=== PATIENT | female | born 1945 | race Caucasian/White ===

== ENCOUNTER 2022-07-30 09:09 | Outpatient (CLI) | payer MEDICARE, MEDICAID ==
[2022-07-30 09:36] LABS: BASOPHILS % (AUTO) 0.6 %; EOSINOPHILS # (AUTO) 0.1 10^3/uL (0.0-0.7); EOSINOPHILS % (AUTO) 2.7 %; HCT - HEMATOCRIT 41.3 % (37.0-47.0); HGB - HEMOGLOBIN 13.7 g/dL (12.0-16.0); LYMPHOCYTES # (AUTO) 1.3 10^3/uL (1.5-3.5); LYMPHOCYTES % (AUTO) 25.7 %; MEAN CORPUSCULAR HGB CONC 33.2 g/dL (32.0-36.0); MEAN CORPUSCULAR VOLUME 84.5 fL (81.0-99.0); MEAN PLATELET VOLUME 9.7 fL (7.9-10.8); MONOCYTES # (AUTO) 0.4 10^3/uL (0.0-1.0); MONOCYTES % (AUTO) 8.8 %; PLT - PLATELET COUNT 178 10^3/uL (130-450); RED BLOOD COUNT 4.89 10^6/uL (4.20-5.40); RED CELL DISTRIBUTION WIDTH 13.5 % (12.0-15.0); WHITE BLOOD COUNT 4.9 x10^3/uL (4.8-10.8)
[2022-07-30 11:20] LABS: ALBUMIN 4.1 g/dL (3.2-5.5); ALBUMIN/GLOBULIN RATIO 1.7 (1.0-2.2); ALKALINE PHOSPHATASE 92 IU/L (42-121); ALT ALANINE AMINOTRANSFERASE 21 IU/L (10-60); AST ASPARTATE AMINOTRANSFERASE 21 IU/L (10-42); BILIRUBIN,TOTAL 0.7 mg/dL (0.2-1.0); BUN - BLOOD UREA NITROGEN 19 mg/dL (6-20); CALCIUM 9.2 mg/dL (8.5-10.3); CARBON DIOXIDE - CO2 24 mmol/L (21-32); CHLORIDE 105 mmol/L (101-111); CHOL/HDL RATIO 2.8 (<4.4); CHOLESTEROL 197 mg/dL; CREATININE 0.7 mg/dL (0.4-1.0); GFR - MDRD 81 (>89); GLUCOSE 117 mg/dL (70-100); HDL CHOLESTEROL 71 mg/dL; LDL CHOLESTEROL,CALCULATED 112 mg/dL; LDL/HDL RATIO 1.6 (<4.4); POTASSIUM 4.1 mmol/L (3.5-5.0); SODIUM 138 mmol/L (135-145); TOTAL PROTEIN 6.5 g/dL (6.7-8.2); TRIGLYCERIDES 70 mg/dL; VLDL CHOLESTEROL 14 mg/dL
[2022-07-30 11:41] LABS: ESTIMATED AVERAGE GLUCOSE 114 mg/dL (70-100); HEMOGLOBIN A1c% 5.6 % (4.27-6.07)
== END 2022-07-30 09:10 | disposition home or self-care (01) ==
LOC: LAB 09:09
PROVIDERS: ATTEND Family Medicine
DX: I10 Essential (primary) hypertension (principal); K59.00 Constipation, unspecified; M15.9 Polyosteoarthritis, unspecified; Z79.899 Other long term (current) drug therapy
CPT/HCPCS: 36415; 80053; 80061; 83036; 83721; 84443; 85025

== ENCOUNTER 2023-03-26 19:53 | Outpatient (CLI) | payer MEDICARE, MEDICAID | END 2023-03-26 19:54 | disposition critical access hospital (66) | LOC: EMS 19:53 | DX: K30 Functional dyspepsia (principal); R42 Dizziness and giddiness; R23.2 Flushing | CPT/HCPCS: A0425; A0427 ==

== ENCOUNTER 2023-03-26 19:57 | Emergency (ER) | payer MEDICARE, MEDICAID ==
[2023-03-26] MEDS ORDERED: NITROGLYCERIN SL 0.4 MG TABLET SL STA ×2 (20:04→20:53)
[2023-03-26] MEDS ORDERED: ASPIRIN CHEW 81 MG TABLET PO STA (20:04)
--- NOTE | 2023-03-26 20:33 | ED Physician Documentation ---
PD HPI CHEST PAIN - Stated complaint Stated Complaint: CP - Chief complaint Chief Complaint: Cardiac - History obtained from History obtained from: Patient - Additional information Additional information: 77-year-old woman with no history of coronary disease. She does have a history of a left bundle branch block. Remotely negative stress testing about 10 years ago. She presents for chest pain. About an hour ago she had a may be a 30- minute episode of substernal chest pressure radiating to the neck with associated Dizziness, nausea, and shortness of breath but no diaphoresis. Since then she has had 2 shorter episodes of similar pain. She is pain-free now. PD PAST MEDICAL HISTORY - Present Medications Home Medications: Ambulatory Orders Medication Instructions Recorded Confirmed Lisinopril [Zestril] 10 mg PO DAILY 03/26/23 03/26/23 - Allergies Allergies/Adverse Reactions: Allergies Allergy/AdvReac Type Severity Reaction Status Date / Time naproxen AdvReac Nausea Verified 03/26/23 20:12 PD ED PE NORMAL - Vitals Vital signs reviewed: Yes - General General: Alert and oriented X 3, No acute distress - Neck Neck: Supple, no meningeal sign, No bony TTP - Cardiac Cardiac: RRR, Other (3 out of 6 decrescendo systolic murmur heard best at the right upper sternal border) - Respiratory Respiratory: No respiratory distress, Clear bilaterally - Abdomen Abdomen: Normal bowel sounds, Soft, Non tender - Extremities Extremities: No edema, No calf tenderness / cord - Neuro Neuro: Alert and oriented X 3, Normal speech Results - Vitals Vitals: Vital Signs - 24 hr 03/26/23 03/26/23 03/26/23 20:00 20:16 20:55 Temperature 36.6 C Heart Rate 81 76 70 Respiratory 17 18 17 Rate Blood Pressure 180/91 H 157/115 H O2 Saturation 99 98 97 03/26/23 03/26/23 03/26/23 21:07 21:41 22:08 Temperature Heart Rate 72 76 69 Respiratory 18 24 18 Rate Blood Pressure 169/86 H 145/89 H O2 Saturation 98 97 96 Oxygen O2 Source Room air - EKG (time done) 1947 EKG releavant findings:: EKG personally interpreted by author of this note. Relevant findings are: Rate: Rate (enter#) (56) Rhythm: NSR, LAE Intervals: Normal SD, LBBB Ischemia: Other (Negative Sgarbossa criteria) 2052 EKG releavant findings:: EKG personally interpreted by author of this note. Relevant findings are: Rate: Rate (enter#) (71) Rhythm: NSR, LAE Intervals: LBBB Compare to prior EKG: Unchanged from prior EKG - Labs Labs: Laboratory Tests 03/26/23 03/26/23 03/26/23 20:32 20:32 20:32 WBC 5.5 RBC 4.73 Hgb 13.1 Hct 40.3 MCV 85.2 MCH 27.7 MCHC 32.5 RDW 13.9 Plt Count 178 MPV 9.8 Neut # (Auto) 3.4 Lymph # (Auto) 1.5 Coleman # (Auto) 0.4 Eos # (Auto) 0.1 Baso # (Auto) 0.0 Absolute Nucleated RBC 0.00 Nucleated RBC % 0.0 Sodium 140 Potassium 4.2 Chloride 104 Carbon Dioxide 30 Anion Gap 6.0 BUN 24 H Creatinine 0.8 Estimated GFR (MDRD) 69 L Glucose 158 H Calcium 9.5 Total Bilirubin 0.5 AST 22 ALT 24 Alkaline Phosphatase 83 Troponin I High Sens 6.7 Total Protein 6.5 L Albumin 3.8 Globulin 2.7 Albumin/Globulin Ratio 1.4 Lipase 34 SARS-CoV-2 (PCR) 03/26/23 21:51 WBC RBC Hgb Hct MCV MCH MCHC RDW Plt Count MPV Neut # (Auto) Lymph # (Auto) Coleman # (Auto) Eos # (Auto) Baso # (Auto) Absolute Nucleated RBC Nucleated RBC % Sodium Potassium Chloride Carbon Dioxide Anion Gap BUN Creatinine Estimated GFR (MDRD) Glucose Calcium Total Bilirubin AST ALT Alkaline Phosphatase Troponin I High Sens Total Protein Albumin Globulin Albumin/Globulin Ratio Lipase SARS-CoV-2 (PCR) NOT DETECTED PD Medical Decision Making - ED course ED course: Shortly after initial arrival she had a short episode of pain. We were not able to get a second EKG before the pain went away. She was given a nitroglycerin. At 853 PM I was notified by the nurse that she was having recurrent pain. Her pain is very typical and is concerning for unstable angina. We will Repeat EKG, give another nitroglycerin, and we will place some Nitropaste as well as oral and IV metoprolol. Her pain abated again as well. Repeat EKG did not show any obvious changes, still limited by left bundle branch block. At that point because of the recurrent pain in the very typical nature of the pain unstable angina is the likely diagnosis and I reached out to the stock handler [facility], Dr. Herrera. We spoke at approximately 9:27 PM and he recommends anticoagulation and transfer to the hospitalist service there.She was started on a heparin drip and the hospitalist was paged. Accepted to [facility] at 9:[address] Cody and el are completed. Departure - Departure Disposition: 02 Transfer Acute Care Hosp Clinical Impression: Unstable angina Condition: Serious
[2023-03-26 20:39] LABS: BASOPHILS % (AUTO) 0.4 %; EOSINOPHILS # (AUTO) 0.1 10^3/uL (0.0-0.7); EOSINOPHILS % (AUTO) 1.8 %; HCT - HEMATOCRIT 40.3 % (37.0-47.0); HGB - HEMOGLOBIN 13.1 g/dL (12.0-16.0); LYMPHOCYTES # (AUTO) 1.5 10^3/uL (1.5-3.5); LYMPHOCYTES % (AUTO) 27.4 %; MEAN CORPUSCULAR HEMOGLOBIN 27.7 pg (27.0-31.0); MEAN CORPUSCULAR HGB CONC 32.5 g/dL (32.0-36.0); MEAN CORPUSCULAR VOLUME 85.2 fL (81.0-99.0); MEAN PLATELET VOLUME 9.8 fL (7.9-10.8); MONOCYTES # (AUTO) 0.4 10^3/uL (0.0-1.0); MONOCYTES % (AUTO) 7.5 %; NEUTROPHILS # (AUTO) 3.4 10^3/uL (1.5-6.6); NEUTROPHILS % (AUTO) 62.7 %; PLT - PLATELET COUNT 178 10^3/uL (130-450); RED BLOOD COUNT 4.73 10^6/uL (4.20-5.40); RED CELL DISTRIBUTION WIDTH 13.9 % (12.0-15.0); WHITE BLOOD COUNT 5.5 x10^3/uL (4.8-10.8)
[2023-03-26] MEDS ORDERED: METOPROLOL 5 MG/5 ML VIAL IVP STA (20:53)
[2023-03-26] MEDS ORDERED: METOPROLOL TARTRATE 50 MG TABLET PO STA (20:53)
[2023-03-26] MEDS ORDERED: NITROGLYCERIN 2% PASTE TOP STA (20:53)
[2023-03-26 20:54] LABS: ALBUMIN 3.8 g/dL (3.2-5.5); ALBUMIN/GLOBULIN RATIO 1.4 (1.0-2.2); BILIRUBIN,TOTAL 0.5 mg/dL (0.2-1.0); CALCIUM 9.5 mg/dL (8.5-10.3); CREATININE 0.8 mg/dL (0.4-1.0); POTASSIUM 4.2 mmol/L (3.5-5.0); TOTAL PROTEIN 6.5 g/dL (6.7-8.2)
--- NOTE | 2023-03-26 21:29 | XRAY Report ---
PROCEDURE: Chest 1 View X-Ray INDICATIONS: Chest Pain TECHNIQUE: One view of the chest was acquired. COMPARISON: None. FINDINGS: Surgical changes and devices: None. Lungs and pleura: There are medial left genetic opacities likely representing atelectasis associated with a hiatal hernia. No pleural effusions or pneumothorax. Mediastinum: There is a large hiatal hernia. Heart size is enlarged. Bones and chest wall: No suspicious bony lesions. There are 2 calcifications projecting over the lef t scapula suggestive of joint bodies in the subcoracoid recess, measuring up to 1.7 cm. There is a ca lcification along the distal right rotator cuff likely reflecting calcific tendinitis. IMPRESSION: 1. No definite acute cardiopulmonary disease. 2. Large hiatal hernia with probable atelectasis medially in the lung bases. Reviewed by: Chris Vance MD on 03/26/2023 9:28 PM PDT Approved by: Chris Vance MD on 03/26/2023 9:28 PM PDT Station ID: [id number]
[2023-03-26] MEDS ORDERED: HEPARIN 25000UNITS/500ML (D5W) 25,000 UNIT/500 ML BAG IV SCH (22:00)
[2023-03-26 22:13] VITALS: BP 145/89
== END 2023-03-26 22:25 | disposition short-term general hospital (02) ==
LOC: EDUNIT# → ED 19:57
DX: I20.0 Unstable angina (principal); Z20.822 Contact with and (suspected) exposure to COVID-19
CPT/HCPCS: 36415; 71045; 80053; 83690; 84484; 85025; 87635; 93005; 96374; 99285; A9270

== ENCOUNTER 2023-03-26 22:44 | Outpatient (CLI) | payer MEDICARE, MEDICAID | END 2023-03-26 22:45 | disposition short-term general hospital (02) | LOC: EMS 22:44 | PROVIDERS: ATTEND Emergency Medicine | DX: I20.0 Unstable angina (principal) | CPT/HCPCS: A0425; A0426 ==

== ENCOUNTER 2023-12-19 16:09 | Emergency (ER) | payer MEDICARE, MEDICAID ==
--- NOTE | 2023-12-19 17:05 | XRAY Report ---
PROCEDURE: Chest 1V INDICATIONS: Chest pain TECHNIQUE: One view of the chest was acquired. COMPARISON: None. FINDINGS: Surgical changes and devices: None. Lungs and pleura: No pleural effusions or pneumothorax. Lungs are clear. Mediastinum: Mediastinal contours appear normal. Heart size is normal. Large hiatal hernia. Bones and chest wall: No suspicious bony lesions. Overlying soft tissues appear unremarkable. IMPRESSION: No acute cardiopulmonary process. Large hiatal hernia. Reviewed by: Jacky Sharma MD on 12/19/2023 5:03 PM [facility] Approved by: Jacky Sharma MD on 12/19/2023 5:03 PM [facility] Station ID: [id number]
[2023-12-19 17:27] LABS: B. PARAPERTUSSIS- RESP PCR PAN NOT DETECTED; B. PERTUSSIS- RESP PCR PANEL NOT DETECTED; C. PNEUMONIAE- RESP PCR PANEL NOT DETECTED; CORONAVIRUS 229E-RESP PCR NOT DETECTED; CORONAVIRUS HKU1-RESP PCR NOT DETECTED; CORONAVIRUS NL63-RESP PCR NOT DETECTED; CORONAVIRUS OC43-RESP PCR NOT DETECTED; HUMAN METAPNEUMOVIRUS NOT DETECTED; INFLUENZA A- RESP PCR PANEL NOT DETECTED; INFLUENZA B - RESP PCR PANEL NOT DETECTED; M. PNEUMONIAE- RESP PCR PANEL NOT DETECTED; PARAINFLUENZA VIRUS 1 NOT DETECTED; PARAINFLUENZA VIRUS 2 NOT DETECTED; PARAINFLUENZA VIRUS 3 NOT DETECTED; PARAINFLUENZA VIRUS 4 NOT DETECTED; RHINOVIRUS/ENTEROVIRUS NOT DETECTED; RSV- RESP PCR PANEL DETECTED; SARS-CoV-2 -RESP PCR PANEL NOT DETECTED
[2023-12-19 18:04] VITALS: O2SAT 96
[2023-12-19 18:22] LABS: BASOPHILS % (AUTO) 0.6 %; EOSINOPHILS # (AUTO) 0.1 10^3/uL (0.0-0.7); EOSINOPHILS % (AUTO) 1.7 %; HCT - HEMATOCRIT 42.2 % (37.0-47.0); HGB - HEMOGLOBIN 13.4 g/dL (12.0-16.0); LYMPHOCYTES # (AUTO) 1.1 10^3/uL (1.5-3.5); LYMPHOCYTES % (AUTO) 21.6 %; MEAN CORPUSCULAR HEMOGLOBIN 27.3 pg (27.0-31.0); MEAN CORPUSCULAR HGB CONC 31.8 g/dL (32.0-36.0); MEAN CORPUSCULAR VOLUME 85.9 fL (81.0-99.0); MEAN PLATELET VOLUME 9.8 fL (7.9-10.8); MONOCYTES # (AUTO) 0.4 10^3/uL (0.0-1.0); MONOCYTES % (AUTO) 8.5 %; NEUTROPHILS # (AUTO) 3.5 10^3/uL (1.5-6.6); NEUTROPHILS % (AUTO) 67.4 %; PLT - PLATELET COUNT 177 10^3/uL (130-450); RED BLOOD COUNT 4.91 10^6/uL (4.20-5.40); RED CELL DISTRIBUTION WIDTH 13.6 % (12.0-15.0); WHITE BLOOD COUNT 5.2 x10^3/uL (4.8-10.8)
[2023-12-19 18:41] LABS: TROPONIN I HIGH SENSITIVITY 3.7 ng/L (2.3-14.8)
[2023-12-19 19:00] LABS: ALBUMIN 4.2 g/dL (3.2-5.5); ALBUMIN/GLOBULIN RATIO 1.9 (1.0-2.2); BILIRUBIN,TOTAL 0.4 mg/dL (0.2-1.0); CALCIUM 9.4 mg/dL (8.5-10.3); CREATININE 0.6 mg/dL (0.6-1.3); POTASSIUM 4.4 mmol/L (3.5-4.5); TOTAL PROTEIN 6.4 g/dL (6.4-8.9)
[2023-12-19 19:20] VITALS: BP 150/78
--- NOTE | 2023-12-19 19:44 | ED Physician Documentation ---
History of Present Illness - Stated complaint Stated Complaint: HIGH BP/LOW HR/DIZZY - Chief complaint Chief Complaint: Neuro - Additonal information Additional information: 78-year-old female with history of hypertension presents emergency department today for dizziness, cough, congestion and heart palpitations. Patient said that this started today she woke up feeling like she is having hard time breathing in the middle the night because she was having rhinorrhea. She has had no known fevers or chills no night sweats. No chest pain she said that she has had some intermittent episodes of dizziness and generalized malaise throughout the day. No history of A-fib or other cardiac history she says that she has not established with a cabinetmaker helper only with her primary care provider. No shortness of breath, no unilateral leg swelling or pain per patient. PD PAST MEDICAL HISTORY - Past Medical History Cardiovascular: Hypertension Respiratory: None Neuro: None Endocrine/Autoimmune: None GI: None COTTON INSPECTOR: None : None HEENT: None Psych: None Musculoskeletal: None Derm: None - Past Surgical History Past Surgical History: No - Present Medications Home Medications: Ambulatory Orders Medication Instructions Recorded Confirmed Lisinopril [Zestril] 20 mg PO DAILY 03/26/23 12/19/23 - Allergies Allergies/Adverse Reactions: Allergies Allergy/AdvReac Type Severity Reaction Status Date / Time naproxen AdvReac Nausea Verified 12/19/23 16:21 - Social History Does the pt smoke?: No Smoking Status: Never smoker Does the pt drink ETOH?: No Does the pt have substance abuse?: No - Immunizations Immunizations are current?: Yes - POLST Patient has POLST: No PD ED PE NORMAL - Vitals Vital signs reviewed: Yes - General General: Alert and oriented X 3, No acute distress, Well developed/nourished - HEENT HEENT: Atraumatic, PERRL, EOMI, Ears normal, Moist mucous membranes - Neck Neck: Supple, no meningeal sign - Cardiac Cardiac: RRR, No murmur, No gallop, Strong equal pulses - Respiratory Respiratory: No respiratory distress, Clear bilaterally - Derm Derm: Normal color, Warm and dry, No rash - Extremities Extremities: No edema - Neuro Neuro: Alert and oriented X 3, cartridge filler 2-12 intact, No motor deficit, Normal speech Eye Opening: Spontaneous Motor: Obeys Commands - Psych Psych: Normal mood Results - Vitals Vitals: Vital Signs - 24 hr 12/19/23 12/19/23 12/19/23 16:18 17:55 19:00 Temperature 36.5 C Heart Rate 83 67 58 L Respiratory 18 16 16 Rate Blood Pressure 182/103 H 160/85 H 150/78 H O2 Saturation 98 96 96 Oxygen O2 Source Room air - EKG (time done) 1620 EKG releavant findings:: EKG personally interpreted by author of this note. Relevant findings are: Rate: Rate (enter#) (71) Rhythm: NSR Dubach: LAD Intervals: Normal NV Ischemia: Normal ST segments Other comments: Other comments ( old left bundle branch block, probable left atrial enlargement) Compare to prior EKG: Unchanged from prior EKG Computer interpretation: Agree with computer - Labs Labs: Laboratory Tests 12/19/23 12/19/23 12/19/23 16:28 18:14 18:14 WBC 5.2 RBC 4.91 Hgb 13.4 Hct 42.2 MCV 85.9 MCH 27.3 MCHC 31.8 L RDW 13.6 Plt Count 177 MPV 9.8 Neut # (Auto) 3.5 Lymph # (Auto) 1.1 L Maury # (Auto) 0.4 Eos # (Auto) 0.1 Baso # (Auto) 0.0 Absolute Nucleated RBC 0.00 Nucleated RBC % 0.0 Sodium 140 Potassium 4.4 Chloride 106 Carbon Dioxide 29 Anion Gap 5.0 L BUN 16 Creatinine 0.6 Estimated GFR (MDRD) 96 Glucose 106 H Calcium 9.4 Total Bilirubin 0.4 AST 16 ALT 18 Alkaline Phosphatase 92 Troponin I High Sens 3.7 Total Protein 6.4 Albumin 4.2 Globulin 2.2 Albumin/Globulin Ratio 1.9 Lipase 23 Nasal Adenovirus (PCR) NOT DETECTED Nasal B. parapertussis DNA (PCR) NOT DETECTED Nasal Coronavir 229E PCR NOT DETECTED Nasal Coronavir HKU1 PCR NOT DETECTED Nasal Coronavir NL63 PCR NOT DETECTED Nasal Coronavir OC43 PCR NOT DETECTED Nasal Enterovir/Rhinovir PCR NOT DETECTED Nasal Influenza B PCR NOT DETECTED Nasal Influenza A PCR NOT DETECTED Nasal Parainfluen 1 PCR NOT DETECTED Nasal Parainfluen 2 PCR NOT DETECTED Nasal Parainfluen 3 PCR NOT DETECTED Nasal Parainfluen 4 PCR NOT DETECTED Nasal RSV (PCR) DETECTED A Nasal B.pertussis DNA PCR NOT DETECTED Nasal C.pneumoniae (PCR) NOT DETECTED Jacques Human Metapneumo PCR NOT DETECTED Nasal M.pneumoniae (PCR) NOT DETECTED Nasal SARS-CoV-2 (PCR) NOT DETECTED - Rads (name of study) Chest x-ray Relevant Findings:: Final report received, EMP independent interpretation of test, Other (No acute cardiopulmonary process) PD Medical Decision Making - ED course ED course: 78-year-old female presents emergency department for what she describes as heart palpitation generalized malaise and dizziness. Labs are complete no significant abnormalities, no anemia, no leukocytosis, chemistry is within normal limits no electrolyte abnormalities. Nasal swab has been complete and she does appear to have RSV. Patient is most likely experiencing what she describes as heart palpitations dizziness and generalized malaise due to RSV. She was told how to manage symptoms at home over the next week or so she is told to follow-up with her primary care provider encouraged to drink plenty of fluids and return to ER if needed, specific ER return precautions given to patient. Departure - Departure Disposition: Home, Self Care Clinical Impression: RSV (respiratory syncytial virus infection) Instructions: ED Viral Syndrome Comments: You for trusting us with your care. We have given you to have RSV. Your labs are reassuring as well as your EKG there is no further workup indicated at this time. Please follow-up with your primary care provider to discuss your heart palpitations that you are experiencing. Make sure going home you are drinking plenty of fluids and eating a healthy well-balanced diet. Please come back to the emergency department if you are starting to feel chest pain, worsening dizziness, or any other concerning symptoms. Wishing you speedy recovery. Forms: PCP List Discharge Date/Time: 12/19/23 19:49
== END 2023-12-19 19:49 | disposition home or self-care (01) ==
LOC: ED 16:09
DX: R42 Dizziness and giddiness (principal); R05.9 Cough, unspecified; R00.2 Palpitations; R53.81 Other malaise
CPT/HCPCS: 36415; 80053; 83690; 84484; 85025; 87633; 93005; 99283; 99284

== ENCOUNTER 2024-02-17 12:19 | Emergency (ER) | payer MEDICARE, MEDICAID ==
--- NOTE | 2024-02-17 12:44 | ED Physician Documentation ---
PD HPI CHEST PAIN - Stated complaint Stated Complaint: CHEST PRESSURE/DISCOMFORT,DIZZINESS,SOA - History obtained from History obtained from: Patient - Additional information Additional information: 78-year-old woman presents for the evaluation of chest discomfort. She says the discomfort she has been having since yesterday is actually similar to when she was seen here in February of last year and because the pain was typical and concerning for unstable angina she sent she was sent to [facility] where a workup including angiography was done which per her was normal. She started to have chest discomfort yesterday. It is in the central chest and radiating to the jaw. It is worse if she exerts herself and gets better with rest. She is short of breath and dizzy with it. It is similar to the symptoms she was having when she was sent to [facility] last year. PD PAST MEDICAL HISTORY - Past Medical History Cardiovascular: Hypertension Respiratory: None Neuro: None Endocrine/Autoimmune: None GI: None WEEKEND RECEPTIONIST: None : None HEENT: None Psych: None Musculoskeletal: None Derm: None - Past Surgical History Past Surgical History: No - Present Medications Home Medications: Ambulatory Orders Medication Instructions Recorded Confirmed Lisinopril [Zestril] 20 mg PO DAILY 03/26/23 02/17/24 Metoprolol Succinate [Toprol Xl] 25 mg PO DAILY #30 tablet 02/17/24 - Allergies Allergies/Adverse Reactions: Allergies Allergy/AdvReac Type Severity Reaction Status Date / Time naproxen AdvReac Nausea Verified 02/17/24 12:43 - Social History Does the pt smoke?: No Smoking Status: Never smoker Does the pt drink ETOH?: No Does the pt have substance abuse?: No - Immunizations Immunizations are current?: Yes - POLST Patient has POLST: No PD ED PE NORMAL - Vitals Vital signs reviewed: Yes - General General: Alert and oriented X 3, No acute distress - Neck Neck: Supple, no meningeal sign, No bony TTP - Cardiac Cardiac: No murmur, Other (Frequent extrasystoles) - Respiratory Respiratory: No respiratory distress, Clear bilaterally - Abdomen Abdomen: Non tender - Extremities Extremities: No edema, No calf tenderness / cord - Neuro Neuro: Alert and oriented X 3 Results - Vitals Vitals: Vital Signs - 24 hr 02/17/24 02/17/24 02/17/24 12:20 12:35 13:29 Temperature 36.4 C L Heart Rate 82 75 Respiratory 19 18 19 Rate Blood Pressure 137/55 H 132/76 H O2 Saturation 98 97 02/17/24 15:00 Temperature Heart Rate 62 Respiratory 13 Rate Blood Pressure 155/71 H O2 Saturation 98 Oxygen O2 Source Room air - EKG (time done) 1233 EKG releavant findings:: EKG personally interpreted by author of this note. Relevant findings are: Rate: Rate (enter#) (54) Rhythm: NSR (With frequent PACs) Intervals: LBBB Ischemia: No: ST elevation c/w ischemia, ST depression - Labs Labs: Laboratory Tests 02/17/24 02/17/24 02/17/24 12:51 12:51 14:29 WBC 6.1 RBC 4.98 Hgb 13.6 Hct 42.3 MCV 84.9 MCH 27.3 MCHC 32.2 RDW 13.8 Plt Count 187 MPV 10.1 Neut # (Auto) 4.4 Lymph # (Auto) 1.2 L Troup # (Auto) 0.4 Eos # (Auto) 0.1 Baso # (Auto) 0.0 Absolute Nucleated RBC 0.00 Nucleated RBC % 0.0 Sodium 138 Potassium 4.3 Chloride 105 Carbon Dioxide 28 Anion Gap 5.0 L BUN 28 H Creatinine 0.6 Estimated GFR (MDRD) 96 Glucose 115 H Calcium 10.0 Total Bilirubin 0.6 AST 18 ALT 18 Alkaline Phosphatase 81 Troponin I High Sens 4.2 4.5 Total Protein 6.6 Albumin 4.3 Globulin 2.3 Albumin/Globulin Ratio 1.9 Lipase 28 - Rads (name of study) Single view chest x-ray demonstrating likely left basilar atelectasis and possible hiatal hernia. Relevant Findings:: Final report received, EMP independent interpretation of test PD Medical Decision Making - ED course Complexity details: reviewed old records (Records received from [facility] and confirmed that she did have clean coronary arteries on angiogram in late February of last year.) ED course: 78-year-old with chest discomfort. Concerning lead is exertional, but reassuringly it is similar to an episode she had last year at which time she had clean coronaries. Her EKG does show significant ectopy, but no real ischemic changes and she has a left bundle branch block that she knows is old. CBC and troponin testing and chest x-ray are unremarkable. Plan to repeat troponin after 2 hours and give her low-dose metoprolol. She was started on metoprolol the hospital last year but since had stopped it. Given the ectopy that may help that as well. Subsequently though prior to discharge she had another episode of pain that was very brief. On the monitor she was in a wide-complex irregular rhythm, the wide complexes were consistent with her underlying left bundle branch block and given that it was irregular I think it represented an short episode of A-fib with aberency. Her second troponin was negative. Will consult [facility] cardiology by phone, but now suspect her symptoms are due to intermittent A-fib. Subsequently I spoke with Dr. Oc Olmedo at [facility] and reviewed the case and he agrees she can probably be safely discharged on a dose of 25 mg of long- acting metoprolol once a day with follow-up for a heart monitor and referral to them for formal consult. Departure - Departure Disposition: 01 Home, Self Care Clinical Impression: Chest pain Qualifiers: Chest pain type: unspecified Qualified Code(s): R07.9 - Chest pain, unspecified Condition: Good Record reviewed to determine appropriate education?: Yes Instructions: ED Chest Pain Atypical Unkn Cause Prescriptions: Metoprolol Succinate [Toprol Xl] 25 mg PO DAILY #30 tablet Comments: You are seen today for chest pressure that mimicked the symptoms you had last year which led to significant diagnostic workup including negative angiography. Workup in the emergency department is basically normal with unremarkable chest x-ray and lab work including 2 sets of troponins that were normal. You did have some premature atrial contractions and 1 episode of 7 beats of what I think was atrial fibrillation with your left bundle branch block. I did discuss the case by phone with Dr. Oc Olmedo, cardiology at [facility] who recommends that Dr. Dickerson order a prolonged cardiac monitoring such as a CAM patch or Zio patch on you and they would like to see you in follow-up. He agrees with starting you on metoprolol again and wanted to defer the decision for anticoagulation until they see you.
[2024-02-17 12:56] LABS: BASOPHILS % (AUTO) 0.3 %; EOSINOPHILS # (AUTO) 0.1 10^3/uL (0.0-0.7); HCT - HEMATOCRIT 42.3 % (37.0-47.0); HGB - HEMOGLOBIN 13.6 g/dL (12.0-16.0); LYMPHOCYTES # (AUTO) 1.2 10^3/uL (1.5-3.5); LYMPHOCYTES % (AUTO) 19.1 %; MEAN CORPUSCULAR HEMOGLOBIN 27.3 pg (27.0-31.0); MEAN CORPUSCULAR HGB CONC 32.2 g/dL (32.0-36.0); MEAN CORPUSCULAR VOLUME 84.9 fL (81.0-99.0); MEAN PLATELET VOLUME 10.1 fL (7.9-10.8); MONOCYTES # (AUTO) 0.4 10^3/uL (0.0-1.0); MONOCYTES % (AUTO) 6.4 %; NEUTROPHILS # (AUTO) 4.4 10^3/uL (1.5-6.6); PLT - PLATELET COUNT 187 10^3/uL (130-450); RED BLOOD COUNT 4.98 10^6/uL (4.20-5.40); RED CELL DISTRIBUTION WIDTH 13.8 % (12.0-15.0); WHITE BLOOD COUNT 6.1 x10^3/uL (4.8-10.8)
[2024-02-17 13:17] LABS: TROPONIN I HIGH SENSITIVITY 4.2 ng/L (2.3-14.8)
[2024-02-17] MEDS: ASPIRIN CHEW 81 MG TABLET PO STA (13:26)
[2024-02-17] MEDS: METOPROLOL SUCCINATE 25 MG TABLET PO STA (13:32)
[2024-02-17 13:35] LABS: ALBUMIN 4.3 g/dL (3.2-5.5); ALBUMIN/GLOBULIN RATIO 1.9 (1.0-2.2); BILIRUBIN,TOTAL 0.6 mg/dL (0.2-1.0); CREATININE 0.6 mg/dL (0.6-1.3); POTASSIUM 4.3 mmol/L (3.5-4.5); TOTAL PROTEIN 6.6 g/dL (6.4-8.9)
--- NOTE | 2024-02-17 13:55 | XRAY Report ---
PROCEDURE: Chest 1V INDICATIONS: Chest Pain TECHNIQUE: One view of the chest was acquired. COMPARISON: 12/19/2023 FINDINGS: Surgical changes and devices: None. Lungs and pleura: Possible mild opacity at the left lung base. No lung volumes. No drainable pleural effusion. Mediastinum: Cardiomediastinal contours are unchanged. Suspected hiatal hernia again seen. Bones and chest wall: Degenerative changes. Rightward spinal curvature. IMPRESSION: Low lung volumes. Possible mild opacity at the left lung base may represent a focus of airspace disea se versus atelectasis. Consider future imaging surveillance to assess for resolution. Possible hiatal hernia. Reviewed by: Yg Kuo MD on 02/17/2024 1:54 PM PDT Approved by: Yg Kuo MD on 02/17/2024 1:54 PM PDT Station ID: [id number]
[2024-02-17 15:55] VITALS: BP 149/76; O2SAT 97
== END 2024-02-17 15:49 | disposition home or self-care (01) ==
LOC: ED 12:19
DX: R07.9 Chest pain, unspecified (principal); I49.1 Atrial premature depolarization; I44.7 Left bundle-branch block, unspecified
CPT/HCPCS: 36415; 71045; 80053; 83690; 84484; 85025; 93005; 99284; A9270

== ENCOUNTER 2024-04-12 15:23 | Outpatient (CLI) | payer MEDICARE, MEDICAID | END 2024-04-12 23:59 | disposition EMS.NT | LOC: EMS 15:23 | DX: R42 Dizziness and giddiness (principal) ==